=== PATIENT | female | born 1950 | race Caucasian/White ===

== ENCOUNTER 2018-05-19 14:22 | Emergency (ER) | payer OTHER ==
[~2018-05-19] VITALS: Ht 162.6 cm; Wt 68.0 kg
[~2018-05-19 14:22] MED LIST: HYZAAR 100-121 UDTAB PO; JANUVIA50 MG PO; METOPROLOL SUCC25 MG PO
[2018-05-19] MEDS ORDERED: METFORMIN HCL500 MG (14:30)
[2018-05-19] MEDS ORDERED: NABUMETONE750 MG (14:30)
[2018-05-19] MEDS ORDERED: NEURONTIN600 MG (14:31)
[2018-05-19] MEDS ORDERED: RESTORIL30 M1 (14:32)
[2018-05-19] MEDS ORDERED: HUMALOG JU100 UNIT/1 (14:33)
== END 2018-05-19 16:46 | disposition home or self-care (01) ==
LOC: ER 14:22
DX: J06.9 Acute upper respiratory infection, unspecified (principal); B34.9 Viral infection, unspecified; J11.1 Influenza due to unidentified influenza virus with other respiratory manifestations

== ENCOUNTER 2018-06-17 12:59 | Emergency (ER) | payer OTHER ==
[~2018-06-17] VITALS: Ht 162.6 cm; Wt 78.0 kg
[~2018-06-17 12:59] MED LIST changes: +HUMALOG JU100 UNIT/1; +METFORMIN HCL500 MG; +NABUMETONE750 MG; +NEURONTIN600 MG; +RESTORIL30 M1
[2018-06-17] MEDS ORDERED: COZAAR100 MG (13:17)
[2018-06-17] MEDS ORDERED: NABUMETONE750 MG (13:17)
[2018-06-17] MEDS ORDERED: ZOCOR20 MG (13:18)
[2018-06-17] MEDS ORDERED: RESTORIL7.5 MG (13:18)
== END 2018-06-17 16:27 | disposition home or self-care (01) ==
LOC: ER 12:59
DX: B34.9 Viral infection, unspecified (principal); J11.1 Influenza due to unidentified influenza virus with other respiratory manifestations

== ENCOUNTER 2024-11-17 12:43 | Emergency (ER) | payer OTHER ==
[~2024-11-17] VITALS: Ht 162.6 cm; Wt 63.5 kg
[~2024-11-17 12:43] MED LIST changes: +COZAAR100 MG; +RESTORIL7.5 MG; +ZOCOR20 MG
[2024-11-17 14:19] VITALS: BP 170/90; O2SAT 99
[2024-11-17] MEDS ORDERED: ZETIA10 MG (14:30)
[2024-11-17] MEDS ORDERED: ROSUVASTATIN CA20 MG PO (14:30)
[2024-11-17] MEDS ORDERED: CELEBREX200MG PO (14:31)
[2024-11-17] MEDS ORDERED: AZOR 5-20 MG T1 EACH (14:31)
[2024-11-17] MEDS ORDERED: LANTUS SOL100 UNIT/1 (14:32)
[2024-11-17] MEDS ORDERED: KETOROLAC TROMETHAMINE 60 MG VIAL IM STA (14:45)
== END 2024-11-17 16:35 | disposition home or self-care (01) ==
LOC: ER 12:43
DX: S80.01XA Contusion of right knee, initial encounter (principal); W18.39XA Other fall on same level, initial encounter; Y93.89 Activity, other specified; Y92.89 Other specified places as the place of occurrence of the external cause; Y99.9 Unspecified external cause status; E11.9 Type 2 diabetes mellitus without complications; Z79.4 Long term (current) use of insulin; Z79.84 Long term (current) use of oral hypoglycemic drugs; Z91.018 Allergy to other foods

== ENCOUNTER 2024-12-09 12:30 | Emergency (ER) | payer OTHER ==
[~2024-12-09] VITALS: Ht 162.6 cm; Wt 65.3 kg
[~2024-12-09 12:30] MED LIST changes: +AZOR 5-20 MG T1 EACH; +CELEBREX200MG PO; +LANTUS SOL100 UNIT/1; +ROSUVASTATIN CA20 MG PO; +ZETIA10 MG
[2024-12-09 13:54] LABS: BASO % 1.0 % (0.1-1.2); EOS # 0.24 (0.04-0.54); EOS % 3.1 % (0.7-7.0); LYMPH # 2.10 (1.18-3.74); LYMPH % 27.4 % (19.3-53.1); MEAN PLATELET VOLUME 11.20 fl (9.4-12.4); MONO # 0.61 (0.24-0.82); MONO % 8.0 % (4.7-12.5); NEUT # 4.62 (1.56-6.13); NEUT % 60.2 % (34.0-71.1); RED CELL DISTRIBUTION WIDTH 11.8 % (11.6-14.4)
[2024-12-09 14:02] LABS: ALT/SGPT 76.0 U/L (12-78); AST/SGOT 41.0 U/L (15-37); BILIRUBIN TOTAL 0.59 mg/dL (0.3-1.2); BUN CREA RATIO 13.0 (7.0-25.0); CREATININE SERUM 1.28 mg/dL (0.55-1.02); GFR 40.65; GLOBULINA 3.5 G/DL (2.4-3.5); OSMOLALITY SERUM 290.0 MOSM/KG (275-295)
[2024-12-09 14:18] LABS: GLUCOSE FASTING 340.0 mg/dL (65-100)
[2024-12-09 14:38] LABS: COVID-19 AG NEGATIVE (NEGATIVE)
== END 2024-12-09 14:52 | disposition home or self-care (01) ==
LOC: ER 13:11
PROVIDERS: General Practice
DX: R53.1 Weakness (principal); Z91.041 Radiographic dye allergy status; Z88.2 Allergy status to sulfonamides; Z91.018 Allergy to other foods; I10 Essential (primary) hypertension; Z20.822 Contact with and (suspected) exposure to COVID-19